=== PATIENT | female | born 1950 | race African-American/Black ===

== ENCOUNTER → 2021-05-25 | Emergency (ER) | payer OTHER ==
[~2021-05-25] VITALS: Ht 162.6 cm; Wt 90.7 kg
[~2021-05-25] MED LIST: ALLEGRA ALLERG180 MG PO; AZELASTINE HCL6 ML OP; COZAAR50 MG PO; GLIMEPIRIDE2 MG; GLUMETZA500 MG PO; LEVOXYL100 MCG PO; NEXIUM40 M1 PO; NYSTATIN15 G2 TP; ZYLOPRIM100 M1 PO
== END | disposition home or self-care (01) ==
LOC: ER 13:31
DX: S00.83XA Contusion of other part of head, initial encounter (principal); W18.39XA Other fall on same level, initial encounter; Y93.89 Activity, other specified; Y92.89 Other specified places as the place of occurrence of the external cause; Y99.8 Other external cause status